=== PATIENT | female | born 1990 | race Hispanic/Latino ===

== ENCOUNTER 2019-08-05 23:27 | Emergency (ER) | payer OTHER ==
[~2019-08-05] VITALS: Ht 157.5 cm; Wt 96.0 kg
[2019-08-05] MEDS ORDERED: LEVOTHYROXIN50 MC1 PO (23:50)
[2019-08-05] MEDS ORDERED: IRON (FERROUS S50 MG PO (23:52)
[2019-08-06] MEDS ORDERED: AMOXICILLIN500 MG PO (03:21)
[2019-08-06 04:01] VITALS: BP 119/69
== END 2019-08-06 03:58 | disposition home or self-care (01) ==
LOC: ED 23:27
DX: S01.21XA Laceration without foreign body of nose, initial encounter (principal); S01.111A Laceration without foreign body of right eyelid and periocular area, initial encounter; S02.2XXA Fracture of nasal bones, initial encounter for closed fracture; Y04.0XXA Assault by unarmed brawl or fight, initial encounter

== ENCOUNTER 2019-08-13 12:28 | Emergency (ER) | payer OTHER ==
[~2019-08-13] VITALS: Ht 157.5 cm; Wt 92.2 kg
[~2019-08-13 12:28] MED LIST: AMOXICILLIN500 MG PO; IRON (FERROUS S50 MG PO; LEVOTHYROXIN50 MC1 PO
[2019-08-13] MEDS ORDERED: LEVOTHYROXIN25 MC1 PO (12:50)
[2019-08-13] MEDS ORDERED: FERR SULFATE325 MG PO (12:51)
[2019-08-13 13:15] VITALS: BP 119/80
== END 2019-08-13 13:15 | disposition home or self-care (01) ==
LOC: ED 12:28
DX: S01.80XD Unspecified open wound of other part of head, subsequent encounter (principal); S01.20XD Unspecified open wound of nose, subsequent encounter; X58.XXXD Exposure to other specified factors, subsequent encounter